=== PATIENT | male | born 1950 | race Caucasian/White ===

== ENCOUNTER 2022-07-25 22:31 | Emergency (ER) | payer OTHER ==
--- OUTSIDE RECORDS SUMMARY | 2022-07-25 22:35 | XMS REPORT | Continuity of Care Document ---
:[address] [facility] t Address [address] [place] [address] Care Team Providers Name Role Phone Mike Gputa MD Primary Care Physician Mike Gupta MD Attending Clinician Doctor Unassigned, [place] Attending Clinician Unavailable Payers Payer Name Policy Type Policy Number Effective Date Expiration Date S ource Problems Condition Condition Condition Status Onset Resolution Last Treating Co mments Source Name Details Category Date Date Treatment Clinician Date Altered Altered Disease Active Univers mental mental 7-31 ity of status, status, 00:00: [place] unspecifie unspecifie 00 Me dical d altered d altered Bran ch mental mental status status type type Encounter Encounter Disease Active 2019-11 Uni vers for for 2-03 ity of Medicare Medicare 00:00: [place] annual annual Medical wellness wellness Branch exam exam Insomnia, Insomnia, Disease Active Uni vers unspecifie unspecifie 8-13 it y of d type d type 00:00: [place] [facility] Anxiety Anxiety Disease Active Univers 8-13 ity of 00:00: [place] [facility] Chronic Chronic Disease Active 2014-11 Univers back pain back pain 0-16 ity of 00:00: [place] [facility] Peripheral Peripheral Disease Active 2014-11 U nivers vascular vascular 0-16 ity of [place] status 00 Medica l with with Branch implants implants and grafts and grafts Hyperlipem Hyperlipem Disease Active 2014-11 U nivers ia ia 0-16 ity of 00:00: [place] 00 [facility] Branch Allergies, Adverse Reactions, Alerts This patient has no known allergies or adverse reactions. Social History Social Habit Start Date Stop Date Quantity Comments Source Exposure to 2022-07-03 2022-07-13 Not sure [facility]-CoV-2 00:00:00 09:22:00 [facility] (event) [facility] Alcohol intake 2022-07-13 2022-07-13 Current University 00:00:00 00:00:00 non-drinker of [facility] alcohol (finding) [facility] Tobacco use and 2022-07-06 2022-07-06 Smokeless tobacco Un iversity of exposure 00:00:00 00:00:[address] [facility] History of 2008-09-25 Cigarette Smoker Universi ty of tobacco use 00:00:00 [facility] Sex Ass[birth year] Universit y of 00:00:00 00:00:00 [facility] Smoking Status Start Date Stop Date Source Ex-smoker 2022-07-06 00:00:00 2022-07-06 00:00:[address] [facility] Medications Ordered Filled Start Stop Current Ordering Indication Dosage Frequency Signature Comments Components Source Medication Medication Date Date Medication? Clinician (SIG) Name Name zolpidem 10 Yes [id number] 10mg Take 1 Univers mg tablet 9-19 tablet by ity o f 00:00: mouth at [place] 00 bedtime as Medical needed for Branch Insomnia. HYDROcodone Yes [id number] 1{tbl} Take 1 Un kerline -acetaminop 9-15 tablet by ity of hen 10-325 00:00: mouth [place] mg tablet 00 every 4 Medical (four) Branch hours as needed for Pain (scale 4-6). Indication s: chronic pain carisoprodo Yes [id number] TAKE 1 Univers L 350 mg 9-15 TABLET BY ity of tablet 00:00: MOUTH FOUR [place] 00 TIMES A Medical DAY Branch HYDROcodone Yes [id number] 1{tbl} Take 1 Un kerline -acetaminop 9-15 tablet by ity of hen 10-325 00:00: mouth [place] mg tablet 00 every 4 Medical (four) Branch hours as needed for Pain (scale 4-6). Indication s: chronic pain carisoprodo Yes [id number] TAKE 1 Univers L 350 mg 9-15 TABLET BY ity of tablet 00:00: MOUTH FOUR [place] 00 TIMES A Medical DAY Branch mupirocin 2 2021-0 Yes [id number] Apply to Univers % ointment 8-31 area(s) 3 ity of 00:00: (three) [place] 00 times Medical daily. Branch mupirocin 2 2021-0 Yes [id number] Apply to Univers % ointment 8-31 area(s) 3 ity of 00:00: (three) [place] 00 times Medical daily. Branch mupirocin 2 2021-0 Yes [id number] Apply to Univers % ointment 8-31 area(s) 3 ity of 00:00: (three) [place] 00 times Medical daily. Branch mupirocin 2 0 Yes [id number] Apply to Univers % ointment 8-31 area(s) 3 ity of 00:00: (three) [place] 00 times Medical daily. Branch zolpidem 10 2021- No 10mg Take 10 mg Univers mg tablet 06-2319 by mouth ity o f 00:00: 00:00 at bedtime [place] 00 :00 as needed. Medical Branch carisoprodo Yes [id number] TAKE 1 Univers L 350 mg 8-17 TABLET BY ity of tablet 00:00: MOUTH FOUR [place] 00 TIMES A Medical DAY Branch HYDROcodone 0 Yes [id number] 1{tbl} Take 1 Un kerline -acetaminop 8-17 tablet by ity of hen 10-325 00:00: mouth [place] mg tablet 00 every 4 Medical (four) Branch hours as needed for Pain (scale 4-6). Indication s: chronic pain carisoprodo 0 Yes [id number] TAKE 1 Univers L 350 mg 8-17 TABLET BY ity of tablet 00:00: MOUTH FOUR [place] 00 TIMES A Medical DAY Branch HYDROcodone 2021-0 Yes [id number] 1{tbl} Take 1 Un kerline -acetaminop 8-17 tablet by ity of hen 10-325 00:00: mouth [place] mg tablet 00 every 4 Medical (four) Branch hours as needed for Pain (scale 4-6). Indication s: chronic pain carisoprodo 2021- No [id number] TAKE 1 Univers L 350 mg -15 TABLET BY ity o f tablet 00:00: 00:00 [place]TH FOUR [place] :[place] TIMES A Medical DAY Branch HYDROcodone 2021- No [id number] 1{tbl} Take 1 U nivers -acetaminop 8-17 07-21 tablet by it y of hen 10-325 00:00: 00:00 mouth [place] mg tablet 00 :00 every 4 Medical (four) Branch hours as needed for Pain (scale 4-6). Indication s: chronic pain lisinopriL Yes [id number] 5mg Take 1 Univers 5 mg tablet 8-01 tablet by ity of 00:00: mouth in [place] 00 the Medical morning. Branch lisinopriL 0 Yes [id number] 5mg Take 1 Univers 5 mg tablet 8-01 tablet by ity of 00:00: mouth in [place] 00 the Medical morning. Branch lisinopriL 0 Yes [id number] 5mg Take 1 Univers 5 mg tablet 8-01 tablet by ity of 00:00: mouth in [place] 00 the Medical morning. Branch lisinopriL 0 Yes [id number] 5mg Take 1 Univers 5 mg tablet 8-01 tablet by ity of 00:00: mouth in [place] 00 the Medical morning. Branch LOVASTATIN 2021-0 Yes [id number] TAKE 1 U nivers 20 mg 5-26 TABLET BY ity of tablet 00:00: MOUTH [place] 00 EVERY DAY Medical Branch LOVASTATIN 2021-0 Yes [id number] TAKE 1 U nivers 20 mg 5-26 TABLET BY ity of tablet 00:00: MOUTH [place] 00 EVERY DAY Medical Branch LOVASTATIN 2021-0 Yes [id number] TAKE 1 U nivers 20 mg 5-26 TABLET BY ity of tablet 00:00: MOUTH [place] 00 EVERY DAY Medical Branch LOVASTATIN 2021-0 Yes [id number] TAKE 1 U nivers 20 mg 5-26 TABLET BY ity of tablet 00:00: MOUTH [place] 00 EVERY DAY Medical Branch CLOPIDOGREL 2021-0 Yes [id number] TAKE 1 Univers 75 mg 4-28 TABLET BY ity of tablet 00:00: MOUTH [place] 00 EVERY DAY Medical Branch CLOPIDOGREL 2-0 Yes [id number] TAKE 1 Univers 75 mg 4-28 TABLET BY ity of tablet 00:00: MOUTH [place] 00 EVERY DAY Medical Branch CLOPIDOGREL 2-0 Yes [id number] TAKE 1 Univers 75 mg 4-28 TABLET BY ity of tablet 00:00: MOUTH [place] 00 EVERY DAY Medical Branch CLOPIDOGREL 2-0 Yes [id number] TAKE 1 Univers 75 mg 4-28 TABLET BY ity of tablet 00:00: MOUTH [place] 00 EVERY DAY Medical Branch citalopram 2021-0 Yes [id number] 20mg Take 1 U nivers 20 mg 1-11 tablet by ity of tablet 00:00: mouth [place] 00 daily. Medical Branch citalopram 2021-0 Yes [id number] 20mg Take 1 U nivers 20 mg 1-11 tablet by ity of tablet 00:00: mouth [place] 00 daily. Medical Branch citalopram 2021-0 Yes [id number] 20mg Take 1 U nivers 20 mg 1-11 tablet by ity of tablet 00:00: mouth [place] 00 daily. Medical Branch citalopram 2021-0 Yes [id number] 20mg Take 1 U nivers 20 mg 1-11 tablet by ity of tablet 00:00: mouth [place] 00 daily. Medical Branch Immunizations Ordered Filled Immunization Date Status Comments [facility] Immunization Name Name SARS-COV-2 COVID-19 2021-11-03 Completed Unive rsity of MODERNA 0.25ML 00:00:00 [place] Medi jorge BOOSTER VACCINE Branch SARS-COV-2 COVID-19 2021-11-03 Completed Unive rsity of MODERNA 0.25ML 00:00:00 [place] Medi jorge BOOSTER VACCINE Branch SARS-COV-2 COVID-19 2021-11-03 Completed Unive rsity of MODERNA 0.25ML 00:00:00 [place] Medi jorge BOOSTER VACCINE Branch SARS-COV-2 COVID-19 2021-11-03 Completed Unive rsity of MODERNA 0.25ML 00:00:00 [place] Medi jorge BOOSTER VACCINE Branch Influenza Virus 2021-07-08 Completed Universit y of Vaccine 00:00:00 [facility] Influenza Virus 2021-07-08 Completed Universit y of Vaccine 00:00:00 [facility] Influenza Virus 2021-07-08 Completed Universit y of Vaccine 00:00:00 [facility] Influenza Virus 2021-07-08 Completed Universit y of Vaccine 00:00:00 [facility] SARS-COV-2 COVID-19 2021-01-06 Completed Unive rsity of MODERNA 12+ YRS 00:00:00 [facility] ical VACCINE Branch SARS-COV-2 COVID-19 2021-01-06 Completed Unive rsity of MODERNA 12+ YRS 00:00:00 [facility] ical VACCINE Branch SARS-COV-2 COVID-19 2021-01-06 Completed Unive rsity of MODERNA 12+ YRS 00:00:00 [facility] ical VACCINE Branch SARS-COV-2 COVID-19 2021-01-06 Completed Unive rsity of MODERNA 12+ YRS 00:00:00 [facility] ical VACCINE Branch SARS-COV-2 COVID-19 2020-12-09 Completed Unive rsity of MODERNA 12+ YRS 00:00:00 [facility] ical VACCINE Branch SARS-COV-2 COVID-19 2020-12-09 Completed Unive rsity of MODERNA 12+ YRS 00:00:00 [facility] ical VACCINE Branch SARS-COV-2 COVID-19 2020-12-09 Completed Unive rsity of MODERNA 12+ YRS 00:00:00 [facility] ical VACCINE Branch SARS-COV-2 COVID-19 2020-12-09 Completed Unive rsity of MODERNA 12+ YRS 00:00:00 [facility] VACCINE Branch Influenza High Dose 2020-06-29 Completed Unive rsity of [place] 00:00:00 [facility] Influenza High Dose 2020-06-29 Completed Unive rsity of [place] 00:00:00 [facility] Influenza High Dose 2020-06-29 Completed Unive rsity of [place] 00:00:00 [facility] Influenza High Dose 2020-06-29 Completed Unive rsity of [place] 00:00:00 [facility] Influenza High Dose 2018-08-27 Completed Unive rsity of 00:00:00 [facility] Influenza High Dose 2018-08-27 Completed Unive rsity of 00:00:00 [facility] Influenza High Dose 2018-08-27 Completed Unive rsity of 00:00:00 [facility] Influenza High Dose 2018-08-27 Completed Unive rsity of 00:00:00 [facility] Vital Signs Vital Name Observation Time Observation Value Comments Source Systolic blood 2022-07-13 14:29:00 145 mm[Hg] Shad sity [facility] pressure [facility] Diastolic blood 2022-07-13 14:29:00 81 mm[Hg] Edgar mcclure [facility] Heart rate 2022-07-13 14:25:00 73 /min [facility] Body height 2022-07-13 14:25:00 182.9 cm [facility] Body weight 2022-07-13 14:25:00 93.396 kg [facility] BMI 2022-07-13 14:25:00 27.93 kg/m2 [facility] Oxygen saturation 2022-07-13 14:25:00 99 /min [facility] in Arterial blood [facility] anch by Pulse oximetry Procedures Procedure Date / Time Performed Performing Clinician [facility] e PATIENT QUESTIONNAIRE 2022-07-07 05:01:00 Doctor Unassigned, No [facility] Plan of Care Planned Activity Planned Date Details Comments Source Encounters Start End Encounter Admission Attending Care Care Encounter Source Date/Time Date/Time Type Type Clinicians Facility Department ID 2022-07-21 2022-07-21 Telephone [facility] [id number] [facility] 00:00:00 00:00:00 [facility] [id number] it y of [place] [id number] [place] as DANE?BLEA [id number] [address] MEDICAL OFFICE [facility] 2022-07-20 2022-07-20 Refill [facility] [id number] Univers 00:00:00 00:00:00 [facility] [id number] it y of [place] [id number] [place] DANE?BLEA [id number] [address] MEDICAL OFFICE BUILDING 2022-07-13 2022-07-13 [facility] [id number] Univers 09:45:00 10:00:00 Visit [facility] [id number] it y of [place] [id number] [place] as DANE?BLEA [id number] Ny dical ALIS [address] [facility] MEDICAL OFFICE BUILDING 2022-07-07 2022-07-07 Orders Doctor ANDRZEJ [id number] Univers 00:00:00 00:00:00 Only Unassigned, MAYDA [id number] ity of [place] [facility] [id number] [place] as [id number] [address] 2021-05-11 2021-05-11 Office DORA Gupta [id number] 07:33:34 07:48:34 Visit [facility] [id number] [place] [id number] [place] [id number] [place] [address] [address] One Results This patient has no known results.
[2022-07-25] MEDS ORDERED: Phenylephrine HCl 10 MG/ML 1 ML VIAL ONE (23:54)
--- NOTE | 2022-07-26 00:04 | EDPHYS ---
Physician Documentation [facility] Name: Gary English Age: 72 yrs Sex: Male : 1950 Arrival Date: 07/25/2022 Time: 22:37 Bed 23 Private MD: ED Physician Thanh Mary HPI: 07/26 00:03 This 72 yrs old Male presents to ER via Ambulatory with complaints of ERECTION FOR MORE ms3 THAN 4 HOURS POST INJECTION. 00:03 72-year-old male with past medical history of hypertensive disorder, depressive ms3 disorder, hyperlipidemia, erectile dysfunction presents for priapism x3 hours. Patient states he is having mild to moderate penile pain. Patient states he injected his penis with alprostadil 50 mcg at 7:30 PM. Patient denies alleviating or inciting factors. Patient denies nausea, vomiting, fevers, chills, shortness of breath.. Historical: - Allergies: 07/25 22:51 No Known Allergies; as6 - PMHx: 22:51 Hypertensive disorder; Depressive disorder; Hypercholesterolemia; as6 - PSHx: 22:51 open heart; as6 - Immunization history:: Client reports receiving the 2nd dose of the Covid vaccine. - Social history:: Smoking status: Patient denies any tobacco usage or history of. ROS: 07/26 00:03 Constitutional: Negative for fever, and chills. Neck: Negative for injury, pain, and ms3 swelling, Cardiovascular: Negative for chest pain, and palpitations. Respiratory: Negative for shortness of breath, cough, wheezing, and pleuritic chest pain, Abdomen/GI: Negative for abdominal pain, nausea, vomiting, diarrhea, and constipation, MS/Extremity: Negative for injury and deformity, Neuro: Negative for headache, weakness, numbness, tingling. : Positive for priapism. All other systems are negative. Exam: 00:03 Constitutional: This is a well developed, well nourished patient who is awake, alert, ms3 and in no acute distress. Head/Face: Normocephalic, atraumatic. Neck: Trachea midline, no cervical lymphadenopathy. Supple, full range of motion without nuchal rigidity, or vertebral point tenderness. No Meningismus. Chest/axilla: Normal chest wall appearance and motion. Nontender with no deformity. Cardiovascular: Regular rate and rhythm with a normal S1 and S2. No gallops, murmurs, or rubs. Normal PMI, no JVD. No pulse deficits. Respiratory: Lungs have equal breath sounds bilaterally, clear to auscultation and percussion. No rales, rhonchi or wheezes noted. No increased work of breathing, no retractions or nasal flaring. Abdomen/GI: Soft, non-tender, with normal bowel sounds. No distension or tympany. No guarding or rebound. No evidence of tenderness throughout. 00:03 : Male external genitalia: Erection present. Vital Signs: 07/25 22:45 BP 113 / 74; Pulse 81; Resp 18 S; Temp 98.6(O); Pulse Ox 97% on R/A; Weight 90.72 kg as6 (R); Height 6 ft. 0 in. (182.88 cm) (R); Pain 4/10; 07/26 00:10 BP 165 / 89; Pulse 71; Resp 18 S; Pulse Ox 99% on R/A; bb 07/25 22:45 Body Mass Index 27.12 (90.72 kg, 182.88 cm) as6 MDM: 07/25 22:52 Patient medically screened. ms3 07/26 00:03 Data reviewed: vital signs, nurses notes, and as a result, I will discharge patient. ms3 Counseling: I had a detailed discussion with the patient and/or guardian regarding: the historical points, exam findings, and any diagnostic results supporting the discharge/admit diagnosis, the need for outpatient follow up, to return to the emergency department if symptoms worsen or persist or if there are any questions or concerns that arise at home. ED course: Patient's pain is injected with 250 mcg of phenylephrine with detumescence of his penis. Patient states pain improved. Patient asking to be discharged at this time. Discussed return precautions with patient to include worsening symptoms, or any other concerns. Patient understands agrees plan. All questions were answered.. Administered Medications: 07/25 23:57 Drug: Phenylephrine 1 mg {Note: administered in penis by Dr Mary .} Route: IV; Rate: bb calculated rate; Site: Other; 07/26 00:10 Follow up: Response: Marked relief of symptoms bb Disposition Summary: 07/26/22 00:03 Discharge Ordered Location: Home ms3 Condition: Stable ms3 Diagnosis - Priapism, drug-induced ms3 Followup: ms3 - With: Private Physician - When: 2 - 3 days - Reason: Recheck today's complaints Discharge Instructions: - Discharge Summary Sheet ms3 - Priapism ms3 Forms: - Medication Reconciliation Form ms3 - Thank You Letter ms3 - Antibiotic Education ms3 - Prescription Opioid Use ms3 Signatures: Eduarda Acosta RN RN Thanh Aj DO DO ms3 David Kumar RN RN as6
--- NOTE | 2022-07-26 00:04 | ER ---
Nurse's Notes [facility] Name: Gary English Age: 72 yrs Sex: Male : 1950 Arrival Date: 07/25/2022 Time: 22:37 Bed 23 Private MD: Diagnosis: Priapism, drug-induced Presentation: 07/25 22:45 Chief complaint: Patient states: "I went to the doctor and started injection therapy as6 today and they gave me some pills. It was my first time taking them and they said if it didn't go down in 3 hours to come here". Coronavirus screen: At this time, the client does not indicate any symptoms associated with coronavirus-19. Ebola Screen: No symptoms or risks identified at this time. Initial Sepsis Screen: Does the patient meet any 2 criteria? No. Patient's initial sepsis screen is negative. Does the patient have a suspected source of infection? No. Patient's initial sepsis screen is negative. Risk Assessment: Do you want to hurt yourself or someone else? Patient reports no desire to harm self or others. Onset of symptoms was July 25, 2022 at 19:30. 22:45 Method Of Arrival: Ambulatory as6 22:45 Acuity: DILIA 3 as6 Historical: - Allergies: 22:51 No Known Allergies; as6 - PMHx: 22:51 Hypertensive disorder; Depressive disorder; Hypercholesterolemia; as6 - PSHx: 22:51 open heart; as6 - Immunization history:: Client reports receiving the 2nd dose of the Covid vaccine. - Social history:: Smoking status: Patient denies any tobacco usage or history of. Screenin:22 Abuse screen: Denies threats or abuse. Denies injuries from another. Nutritional hb screening: No deficits noted. Tuberculosis screening: No symptoms or risk factors identified. Fall Risk None identified. Assessment: 23:22 General: Appears in no apparent distress. Behavior is calm, cooperative. Pain: Pain hb currently is 4 out of 10 on a pain scale. Neuro: Level of Consciousness is awake, alert, obeys commands, Oriented to person, place, time, situation. Cardiovascular: Patient's skin is warm and dry. Respiratory: Respiratory effort is even, unlabored, Respiratory pattern is regular, symmetrical. GI: No signs and/or symptoms were reported involving the gastrointestinal system. : erection. EENT: No signs and/or symptoms were reported regarding the EENT system. Derm: Skin is pink, warm \\T\\ dry. Musculoskeletal: No signs and/or symptoms reported regarding the musculoskeletal system. 23:22 General: Appears in no apparent distress. uncomfortable. Pain: Complains of pain in bb penis. Neuro: Level of Consciousness is awake, alert, obeys commands, Oriented to person, place, time, situation. Cardiovascular: Capillary refill < 3 seconds Patient's skin is warm and dry. Respiratory: Airway is patent Respiratory effort is even, unlabored, Respiratory pattern is regular. GI: No signs and/or symptoms were reported involving the gastrointestinal system. : Reports he has an erection which won't go down. Derm: Skin is pink, warm \\T\\ dry. Musculoskeletal: Circulation, motion, and sensation intact. 07/26 00:09 Reassessment: Patient is alert, oriented x 3, equal unlabored respirations, skin bb warm/dry/pink. pt verbalized understanding of and agrees to plan of care discharge instructions given pt ambulated with steady gait to exit. Vital Signs: 07/25 22:45 BP 113 / 74; Pulse 81; Resp 18 S; Temp 98.6(O); Pulse Ox 97% on R/A; Weight 90.72 kg as6 (R); Height 6 ft. 0 in. (182.88 cm) (R); Pain 4/10; 07/26 00:10 BP 165 / 89; Pulse 71; Resp 18 S; Pulse Ox 99% on R/A; bb 07/25 22:45 Body Mass Index 27.12 (90.72 kg, 182.88 cm) as6 ED Course: 07/25 22:37 Patient arrived in ED. dt4 22:41 Thanh Mary DO is Attending Physician. ms3 22:51 Triage completed. as6 22:52 Arm band placed on. as6 23:22 Dari Benito, RN is Primary Nurse. hb 23:22 Patient has correct armband on for positive identification. hb 07/26 00:10 No provider procedures requiring assistance completed. Patient did not have IV access bb during this emergency room visit. Administered Medications: 07/25 23:57 Drug: Phenylephrine 1 mg {Note: administered in penis by Dr Mary .} Route: IV; Rate: bb calculated rate; Site: Other; 07/26 00:10 Follow up: Response: Marked relief of symptoms bb Medication: 07/25 23:22 VIS not applicable for this client. Outcome: 07/26 00:03 Discharge ordered by . ms3 00:11 Discharged to home ambulatory. reagan 00:11 Condition: stable 00:11 Discharge instructions given to patient, Instructed on discharge instructions, follow up and referral plans. Demonstrated understanding of instructions, follow-up care. 00:11 Patient left the ED. bb Signatures: Eduarda Acosta, RN RN bb Dari Benito, RN RN Thanh Mary DO DO ms3 David Kumar, RN RN as6 [place] dt4
[2022-07-27 09:04] VITALS: TEMP 98.6
[2022-07-27 09:14] VITALS: BP 165/89; O2SAT 99
== END 2022-07-26 00:11 | disposition home or self-care (01) ==
LOC: ER 22:31
DX: N48.33 Priapism, drug-induced (principal)
CPT/HCPCS: 96374; 99283; J2370

== ENCOUNTER → 2023-10-31 | Emergency (ER) | payer OTHER ==
[~2023-10-31] MED LIST: FLUORESCEIN SODIUM 1 MG/WRAP ONE; TETRACAINE HCL 0.5% 4ML OPTH ONE
--- NOTE | 2023-10-31 13:53 | ER ---
Nurse's Notes [facility] Name: Gary English Age: 73 yrs Sex: Male : 1950 Arrival Date: 10/31/2023 Time: 13:17 Bed 12 Private MD: Diagnosis: Injury of conjunctiva and corneal abrasion without foreign body, left eye Presentation: 10/31 13:41 Chief complaint: Patient states: was playing golf, went to retrieve a ball from the brush and felt something poke hi left eye, is unsure if there's something stuck in it or just scratched , happened 2-3 hours ago. Coronavirus screen: At this time, the client does not indicate any symptoms associated with coronavirus-19. Ebola Screen: Patient negative for fever greater than or equal to 101.5 degrees Fahrenheit, and additional compatible Ebola Virus Disease symptoms Patient denies exposure to infectious person. Patient denies travel to an Ebola-affected area in the 21 days before illness onset. No symptoms or risks identified at this time. Initial Sepsis Screen: Does the patient meet any 2 criteria? No. Patient's initial sepsis screen is negative. Does the patient have a suspected source of infection? No. Patient's initial sepsis screen is negative. Risk Assessment: Do you want to hurt yourself or someone else? Patient reports no desire to harm self or others. Onset of symptoms was October 31, 2023. 13:41 Method Of Arrival: Ambulatory iw 13:41 Acuity: DILIA 4 iw Historical: - Allergies: 13:42 No Known Allergies; iw - PMHx: 13:42 depressive disorder; Hypercholesterolemia; Hypertensive disorder; iw - PSHx: 13:42 open heart; iw - Immunization history:: Adult Immunizations unknown. - Social history:: Smoking status: Patient denies any tobacco usage or history of. - Family history:: not pertinent. - Hospitalizations: : No recent hospitalization is reported. Screenin:49 [facility] ED Fall Risk Assessment (Adult) History of falling in the last 3 months, ph including since admission No falls in past 3 months (0 pts) Confusion or Disorientation No (0 pts) Intoxicated or Sedated No (0 pts) Impaired Gait No (0 pts) Mobility Assist Device Used Yes (1 pt) Altered Elimination No (0 pt) Score/Fall Risk Level 0 - 2 = Low Risk Oriented to surroundings, Maintained a safe environment, Assessed \T\ reinforced patient's understanding of fall precautions, Provided non-skid footwear. Abuse screen: Denies threats or abuse. Denies injuries from another. Nutritional screening: No deficits noted. Tuberculosis screening: No symptoms or risk factors identified. Assessment: 13:50 General: Appears in no apparent distress. Behavior is calm, cooperative, appropriate ph for age. Pain: Complains of pain in left eye. Neuro: Level of Consciousness is awake, alert, obeys commands, Oriented to person, place, time, situation. EENT: Sclera/Cornea are reddened in left eye. Derm: Skin is pink, warm \T\ dry. Vital Signs: 13:41 BP 159 / 81; Pulse 60; Resp 16; Temp 97.6; Pulse Ox 97% on R/A; iw ED Course: 13:21 Patient arrived in ED. mg5 13:28 Kalin Enriquez MD is Attending Physician. rn 13:42 Triage completed. iw 13:48 Khadijah Cowart RN is Primary Nurse. ph 13:50 Arm band placed on Patient placed in an exam room. ph 13:50 Patient has correct armband on for positive identification. Bed in low position. Call ph light in reach. Side rails up X 1. 13:51 No provider procedures requiring assistance completed. Patient did not have IV access ph during this emergency room visit. 13:52 Toby Greenwood MD is Referral Physician. rn Administered Medications: 13:49 Drug: Fluorescein Ophthalmic Strip 1 strip Ophthalmic once Route: Ophthalmic; Site: ph left eye; 14:03 Follow up: Response: No adverse reaction ph 13:49 Drug: Tetracaine Ophthalmic Drops 0.5 % 1 drops Ophthalmic once Route: Ophthalmic; ph Site: left eye; 14:03 Follow up: Response: No adverse reaction ph Medication: 13:50 VIS not applicable for this client. ph Outcome: 13:52 Discharge ordered by . rn 14:03 Discharged to home ambulatory, ph 14:03 Condition: good 14:03 Discharge instructions given to patient, Instructed on discharge instructions, follow up and referral plans. medication usage, Demonstrated understanding of instructions, follow-up care, medications, Prescriptions given X 1, 14:03 Patient left the ED. ph Signatures: Lina Gonzalez RN RN Kalin Enriquez MD MD rn Hall Khadijah, RN RN ph rBeanne Pillai mg5
--- NOTE | 2023-10-31 13:53 | EDPHYS ---
Physician Documentation [facility] Name: Gary English Age: 73 yrs Sex: Male : 1950 Arrival Date: 10/31/2023 Time: 13:17 Bed 12 Private MD: ED Physician Kalin Enriquez HPI: 10/31 13:48 This 73 yrs old Male presents to ER via Ambulatory with complaints of Foreign Body In rn Eye. 13:48 The patient is experiencing foreign body sensation, tearing, The patient sustained an rn abrasion, to the left eye, caused by Branch. Onset: The symptoms/episode began/occurred today. Aggravated by nothing. Alleviated by nothing. Severity of symptoms: At their worst the symptoms were moderate in the emergency department the symptoms are unchanged. The patient has not experienced similar symptoms in the past. Patient reports playing golf, went into some brush, bent down and thinks a branch scraped his left eye. Finished playing golf, reports foreign body sensation left eye and came in to see if anything is in his eye. No loss of vision.. Historical: - Allergies: 13:42 No Known Allergies; iw - PMHx: 13:42 depressive disorder; Hypercholesterolemia; Hypertensive disorder; iw - PSHx: 13:42 open heart; iw - Immunization history:: Adult Immunizations unknown. - Social history:: Smoking status: Patient denies any tobacco usage or history of. - Family history:: not pertinent. - Hospitalizations: : No recent hospitalization is reported. ROS: 13:48 Constitutional: Negative for fever, chills, and weight loss, Eyes: Positive for injury rn and tearfulness of the left eye Exam: 13:48 Constitutional: This is a well developed, well nourished patient who is awake, alert, rn and in no acute distress. Head/Face: Normocephalic, atraumatic. Eyes: Pupils equal round and reactive to light, extra-ocular motions intact. Left corneal abrasion noted with fluorescein uptake. Negative Gera sign. Pupil on left side is equally round, not asymmetric. No foreign body noted even with lids everted. Vital Signs: 13:41 BP 159 / 81; Pulse 60; Resp 16; Temp 97.6; Pulse Ox 97% on R/A; iw MDM: 13:28 Patient medically screened. rn 13:48 Differential diagnosis: Corneal abrasion of Foreign body in. Differential diagnosis: rn Orbital rupture. Data reviewed: vital signs, nurses notes, and as a result, I will discharge patient. Counseling: I had a detailed discussion with the patient and/or guardian regarding the historical points, exam findings, and any diagnostic results supporting the discharge/admit diagnosis, the need for outpatient follow up, to return to the emergency department if symptoms worsen or persist or if there are any questions or concerns that arise at home. Response to treatment: the patient's symptoms have markedly improved after treatment, and as a result, I will discharge patient. Special discussion: I discussed with the patient/guardian in detail that at this point there is no indication for admission to the hospital. It is understood, however, that if the symptoms persist or worsen the patient needs to return immediately for re-evaluation. Based on the history and exam findings, there is no indication for further emergent testing or inpatient evaluation. I discussed with the patient/guardian the need to see the opthamologist for further evaluation of the symptoms. ED course: Markedly improved after tetracaine drops. Vision tested again and normal vision after drops.. Administered Medications: 13:49 Drug: Fluorescein Ophthalmic Strip 1 strip Ophthalmic once Route: Ophthalmic; Site: ph left eye; 14:03 Follow up: Response: No adverse reaction ph 13:49 Drug: Tetracaine Ophthalmic Drops 0.5 % 1 drops Ophthalmic once Route: Ophthalmic; ph Site: left eye; 14:03 Follow up: Response: No adverse reaction ph Disposition Summary: 10/31/23 13:52 Discharge Ordered Notes: Location: Home rn Problem: new rn Symptoms: have improved rn Condition: Stable rn Diagnosis - Injury of conjunctiva and corneal abrasion without foreign body, left eye rn Followup: rn - With: Toby Greenwood MD - When: As needed - Reason: Recheck today's complaints, Re-evaluation by your physician Discharge Instructions: - Discharge Summary Sheet rn - Corneal Abrasion rn Forms: - Medication Reconciliation Form rn - Thank You Letter rn - Antibiotic regulatory affairs internship - Prescription Opioid Use rn - Patient Portal Instructions rn - Leadership Thank You Letter rn Prescriptions: - Vigamox 0.5 % Ophthalmic Drops - instill 1 drop OPHTHALMIC route every 8 hours for 7 days; 5 milliliter; rn Refills: 0, Product Selection Permitted Signatures: Lina Gonzalez RN Kalin Dumont MD MD rn Hall, Patricia, RN RN ph
[2023-10-31 15:24] VITALS: BP 159/81; TEMP 97.6; O2SAT 97
== END ==
LOC: ER 13:17
DX: S05.02XA Injury of conjunctiva and corneal abrasion without foreign body, left eye, initial encounter (principal)
CPT/HCPCS: 99283

== ENCOUNTER → 2024-01-22 | Emergency (ER) | payer OTHER ==
--- NOTE | 2024-01-22 22:20 | ER ---
Nurse's Notes [facility] Name: Gary English Age: 73 yrs Sex: Male : 1950 Arrival Date: 01/22/2024 Time: 21:51 Bed IW2 Private MD: Diagnosis: Presentation: 01/21 22:01 Chief complaint: Patient states: HIGH BP STARTED TODAY. Coronavirus screen: At this [facility] time, the client does not indicate any symptoms associated with coronavirus-19. Ebola Screen: No symptoms or risks identified at this time. Initial Sepsis Screen: Does the patient meet any 2 criteria? No. Patient's initial sepsis screen is negative. Does the patient have a suspected source of infection? No. Patient's initial sepsis screen is negative. Risk Assessment: Do you want to hurt yourself or someone else? Patient reports no desire to harm self or others. Note PT STATES HE JUST WANTS TO LEAVE. 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 BP IS GOING DOWN. JUST WANTED HIS BP CHECKED. PT ENCOURAGED TO SEE MD. STATES HE JUST WANTS TO LEAVE. PT GIVEN EDUCATION ABOUT TAKING BP MEDS DIRECTED BECAUSE HE WAS INSTRUCTED BY HIS MD TO TAKE IN THE MORNING BUT STATES HE FORGETS. INSTRUCTED TO WAIT ABOUT 45 MIN AFTER TAKING MEDS BEFORE CHECKING BP. STATES THEY WILL TAKE MEDS DIRECTED. 22:01 Method Of Arrival: Ambulatory [facility] 22:01 Acuity: DILIA 3 jj7 Triage Assessment: 22:01 General: Appears in no apparent distress. comfortable, Behavior is calm, cooperative, jj7 appropriate for age. Pain: Denies pain. Cardiovascular: No deficits noted. Historical: - Allergies: 22:12 No Known Allergies; jj7 - PMHx: 22:12 depressive disorder; Hypertensive disorder; Hypercholesterolemia; jj7 - PSHx: 22:12 open heart; jj7 - Immunization history:: Adult Immunizations up to date. Vital Signs: 22:01 BP 154 / 86; Pulse 75; Resp 17; Temp 97.4; Pulse Ox 100% ; Weight 92.53 kg; Height 6 j7 ft. 0 in. ; Pain 0/10; 22:01 Body Mass Index 27.67 (92.53 kg, 182.88 cm) 7 22:01 Pain Scale: Adult jj7 ED Course: 21:54 Patient arrived in ED. im 21:55 Abilio Moncada MD is Attending Physician. holly 22:01 Arm band placed on left wrist. marvin 22:12 Triage completed. jj7 Administered Medications: 22:17 CANCELLED (Patient Eloped): [id number] mg PO once pf1 22:17 CANCELLED (Patient Eloped): [id number] mg PO once pf1 Outcome: 22:20 Patient left the ED. pf1 Signatures: Abilio Moncada MD MD cha Johnson, Juwairiyah RN RN jj7 Priti Mora RN RN pf1 Vonda Michael im
[2024-01-22 22:40] VITALS: BP 154/86; TEMP 97.4; O2SAT 100
== END | disposition left against medical advice (07) ==
LOC: ER 21:51
DX: I10 Essential (primary) hypertension (principal)
CPT/HCPCS: 99281

== ENCOUNTER 2024-03-04 18:48 | Emergency (ER) | payer OTHER ==
[2024-03-04 19:10] LABS: Absolute Basophils 0.1 K/uL (0-0.5); Absolute Eosinophils 0.6 K/uL (0-0.5); Absolute Lymphocytes (CBC) 2.5 K/uL (0.7-4.9); Absolute Monocytes 1.1 K/uL (0.1-1.3); Absolute Neutrophil 4.9 K/uL (1.8-8.0); Basophils % 0.6 % (0-1.3); Eosinophils % 6.9 % (0-4.4); Hematocrit 38.2 % (39.6-49.0); Hemoglobin 12.9 g/dL (13.6-17.9); MCH 29.1 pg (27.0-35.0); MCHC 33.6 g/dL (32.0-36.0); MCV 86.4 fL (80-100); Monocytes % 12.3 % (3.3-12.3); Neutrophils % 53.2 % (41.7-73.7); Platelets 278 thou/uL (152-406); RBC Red Blood Cell Count 4.42 M/uL (4.33-5.43); Red Cell Distribution Width 14.1 % (12.1-15.2)
[2024-03-04 19:11] LABS: PT Prothrombin Time 12.6 SECONDS (9.5-12.5); Protime INR 1.15
--- NOTE | 2024-03-04 19:23 | EDPHYS ---
Physician Documentation [facility] Name: Gary English Age: 73 yrs Sex: Male : 1950 Arrival Date: 03/04/2024 Time: 18:48 Bed 5 Private MD: ED Physician Abilio Moncada HPI: 03/04 19:12 This 73 yrs old Male presents to ER via Ambulatory with complaints of High holly Blood Pressure, Chest Pain. 19:12 The patient has elevated blood pressure and discovered this at home. Onset: The holly symptoms/episode began/occurred yesterday. Modifying factors: The symptoms are aggravated by activity, The symptoms are alleviated by remaining still. Associated signs and symptoms: The patient has no apparent associated signs or symptoms. Severity of symptoms: At its worst the blood pressure was moderate, in the emergency department the blood pressure is improved, moderately. The patient has not experienced similar symptoms in the past. Historical: - Allergies: 18:53 No Known Allergies; as6 - PMHx: 18:53 depressive disorder; Hypercholesterolemia; Hypertensive disorder; as6 - PSHx: 18:53 open heart; as6 - Immunization history:: Adult Immunizations not up to date. - Infectious Disease History:: Denies. - Social history:: Smoking status: Patient/guardian denies using tobacco, but has a distant history of tobacco abuse. ROS: 19:13 Constitutional: Negative for fever, chills, and weight loss, Eyes: Negative for injury, holly pain, redness, and discharge, ENT: Negative for injury, pain, and discharge, Neck: Negative for injury, pain, and swelling, Respiratory: Negative for shortness of breath, cough, wheezing, and pleuritic chest pain, Abdomen/GI: Negative for abdominal pain, nausea, vomiting, diarrhea, and constipation, Back: Negative for injury and pain, : Negative for injury, bleeding, discharge, and swelling, MS/Extremity: Negative for injury and deformity, Skin: Negative for injury, rash, and discoloration, Neuro: Negative for headache, weakness, numbness, tingling, and seizure, Psych: Negative for depression, anxiety, suicide ideation, homicidal ideation, and hallucinations, Allergy/Immunology: Negative for hives, rash, and allergies, Endocrine: Negative for neck swelling, polydipsia, polyuria, polyphagia, and marked weight changes, Hematologic/Lymphatic: Negative for swollen nodes, abnormal bleeding, and unusual bruising, 19:13 Cardiovascular: Positive for chest pain, of the chest, Exam: 19:13 Constitutional: This is a well developed, well nourished patient who is awake, alert, holly and in no acute distress. Head/Face: Normocephalic, atraumatic. Eyes: Pupils equal round and reactive to light, extra-ocular motions intact. Lids and lashes normal. Conjunctiva and sclera are non-icteric and not injected. Cornea within normal limits. Periorbital areas with no swelling, redness, or edema. ENT: Nares patent. No nasal discharge, no septal abnormalities noted. Tympanic membranes are normal and external auditory canals are clear. Oropharynx with no redness, swelling, or masses, exudates, or evidence of obstruction, uvula midline. Mucous membranes moist. Neck: Trachea midline, no thyromegaly or masses palpated, and no cervical lymphadenopathy. Supple, full range of motion without nuchal rigidity, or vertebral point tenderness. No Meningismus. Chest/axilla: Normal chest wall appearance and motion. Nontender with no deformity. No lesions are appreciated. Respiratory: Lungs have equal breath sounds bilaterally, clear to auscultation and percussion. No rales, rhonchi or wheezes noted. No increased work of breathing, no retractions or nasal flaring. Abdomen/GI: Soft, non-tender, with normal bowel sounds. No distension or tympany. No guarding or rebound. No evidence of tenderness throughout. Back: No spinal tenderness. No costovertebral tenderness. Full range of motion. Male : Normal genitalia with no discharge or lesions. Skin: Warm, dry with normal turgor. Normal color with no rashes, no lesions, and no evidence of cellulitis. MS/ Extremity: Pulses equal, no cyanosis. Neurovascular intact. Full, normal range of motion. Neuro: Awake and alert, GCS 15, oriented to person, place, time, and situation. Cranial nerves II-XII grossly intact. Motor strength 5/5 in all extremities. Sensory grossly intact. Cerebellar exam normal. Normal gait. Psych: Awake, alert, with orientation to person, place and time. Behavior, mood, and affect are within normal limits. 19:13 Cardiovascular: Rate: normal, Rhythm: regular, Pulses: no pulse deficits are appreciated, Heart sounds: normal, Edema: is not appreciated, JVD: is not appreciated, Bilateral blood pressure: is equal, 19:13 ECG was reviewed by the Attending Physician. Vital Signs: 18:49 BP 213 / 96; Pulse 81; Resp 16; Temp 97.9; Pulse Ox 100% ; Weight 92.99 kg; Height 6 as6 ft. 0 in. ; Pain 0/10; 18:56 BP 155 / 74; Pulse 86; Resp 18 S; Pulse Ox 96% on R/A; kc6 19:00 BP 150 / 78; Pulse 80; Resp 15 S; Pulse Ox 98% on R/A; jw7 19:30 BP 130 / 74 LA; lg3 19:30 BP 128 / 80 RA; lg3 20:11 BP 160 / 83; Pulse 67; Resp 17 S; Pulse Ox 100% on R/A; jw7 20:15 BP 174 / 92; Pulse 84; Resp 14 S; Pulse Ox 99% on R/A; jw7 20:17 BP 167 / 76; Pulse 83; Resp 13 S; Pulse Ox 100% on R/A; jw7 20:45 BP 141 / 68; Pulse 75; Resp 17 S; Pulse Ox 100% on R/A; ha1 18:49 Body Mass Index 27.80 (92.99 kg, 182.88 cm) as6 18:49 Pain Scale: Adult as6 MDM: 18:51 Patient medically screened. holly 19:16 HEART Score: History: Moderately Suspicious (1), ECG: Significant ST-deviation (2), holly Age: > or = 65 years (2), Risk Factors: > or = 3 Risk factors for atherosclerotic disease (2), [Hypercholesterolemia] [Hypertension] [+ Family HX] Troponin: < or = 1 x Normal Limit (0), Total Score = 7. The patient was given aspirin in the Emergency Department. SHAYLA Risk Score: 1 - patient's age is greater or equal to 65 years, 1 - Three or more CAD risk factors, 1- Known CAD, 1 - ASA use in past 7 days, 1 - Recent [<24hrs] Severe Angina, TOTAL SCORE = 5. Data reviewed: vital signs, nurses notes, lab test result(s), EKG, radiologic studies, CT scan, plain films. Consideration of Admission/Observation Escalation of care including admission/observation considered. I considered the following discharge prescriptions or medication management in the emergency department Medications were administered in the Emergency Department. See MAR. Test considered but Not performed: Ultrasound no 2 d echo. Care significantly affected by the following chronic conditions: Hypertension, Chronic Kidney Disease. Counseling: I had a detailed discussion with the patient and/or guardian regarding the historical points, exam findings, and any diagnostic results supporting the discharge/admit diagnosis, the presence of at least one elevated blood pressure reading (>120/80) during this emergency department visit, lab results, radiology results, the need to transfer to another facility, for higher level of care, [facility] does not immediately have the required specialist. 03/04 18:54 Order name: Basic Metabolic Panel; Complete Time: 19:35 [facility] 03/04 18:54 Order name: CBC with Diff; Complete Time: 19:21 03/04 18:54 Order name: LFT's; Complete Time: 19:35 03/04 18:54 Order name: Magnesium; Complete Time: 19:35 03/04 18:54 Order name: NT PRO-BNP; Complete Time: 19:35 03/04 18:54 Order name: PT-INR; Complete Time: 19:21 03/04 18:54 Order name: Troponin HS; Complete Time: 19:35 03/04 18:54 Order name: Lipase; Complete Time: 19:35 03/04 18:54 Order name: XRAY Chest (1 view) [facility] 03/04 18:54 Order name: EKG; Complete Time: 18:54 03/04 18:54 Order name: Cardiac monitoring; Complete Time: 18:54 03/04 18:54 Order name: EKG - Nurse/Tech; Complete Time: 18:54 03/04 18:54 Order name: IV Saline Lock; Complete Time: 18:54 03/04 18:54 Order name: Labs collected and sent; Complete Time: 18:54 03/04 18:54 Order name: O2 Per Protocol; Complete Time: 18:55 03/04 18:54 Order name: O2 Sat Monitoring; Complete Time: 18:54 03/04 19:23 Order name: Bilateral blood pressure; Complete Time: 19:32 holly EC:13 Rate is 84 beats/min. Rhythm is regular. QRS [place] is Normal. NM interval is normal. QRS holly interval is normal. QT interval is normal. No Q waves. T waves are Normal. ST Segment is depressed in leads I, II, aVL, aVF, V2, V3, V4, V5, V6. Clinical impression: Abnormal EKG without significant change. Interpreted by me. Reviewed by me. Administered Medications: 19:50 Not Given (Duplicate Order): [id number] mg IV at per protocol once over 2 mins holly 19:50 Not Given (Duplicate Order): [id number] mg IV at per protocol once over 2 mins; repeat holly if systolic is greater than 160 sys, hr greater than 20:00 Drug: NS 0.9% IV 500 ml IV at bolus once Route: IV; Rate: bolus; Site: left wrist; jw7 20:45 Follow up: Response: No adverse reaction; IV Status: Completed infusion; IV Intake: jw7 500ml 20:00 Drug: NS 0.9% IV 1000 ml IV at 125 ml/hr continuous Route: IV; Rate: 125 ml/hr; Site: [facility] left wrist; 20:45 Follow up: Response: No adverse reaction; IV Status: Infusion continued upon transfer; jw7 IV Intake: 200ml 20:00 Drug: Famotidine IVP 20 mg IVP once; dilute with 10 mL 0.9% NaCl; give over 2 minutes jw7 Route: IVP; Site: right antecubital; 20:45 Follow up: Response: No adverse reaction jw7 20:00 Drug: Labetalol PO 100 mg PO once Route: PO; jw7 20:45 Follow up: Response: No adverse reaction; Marked relief of symptoms; Blood pressure is jw7 lowered 20:00 Drug: Clopidogrel PO 75 mg PO once Route: PO; jw7 20:50 Follow up: Response: No adverse reaction ha1 20:00 Drug: Aspirin PO Chewable Tablet 81 mg PO once Route: PO; jw7 20:50 Follow up: Response: No adverse reaction ha1 20:15 Drug: Heparin (ME-Bolus No thrombolytic) - HEParin IVP 60 units/kg IVP once; Max 5000 jw7 units {Co-Signature: lg3 (Galilea Haq RN).} Route: IVP; Site: right antecubital; 20:50 Follow up: Response: No adverse reaction; Marked relief of symptoms ha1 20:21 Drug: Heparin (ME Drip) 12 units/kg/hr - ([place] [address] units, D5W IV 500 ml) IV at jw7 calculated rate Per protocol; Max initial rate 1000 units/hr {Co-Signature: lg3 (Galilea Haq RN).} Route: IV; Rate: calculated rate; Site: right antecubital; 20:55 Follow up: Response: No adverse reaction; IV Status: Infusion continued ha1 20:34 Drug: Labetalol IV 10 mg IV at per protocol once Route: IV; Rate: per protocol; Site: jw7 left wrist; 20:45 Follow up: Response: No adverse reaction; IV Status: Completed infusion; IV Intake: 2ml jw7 20:55 Follow up: Response: No adverse reaction ha1 20:52 Not Given (Patient Refused): morphineor iv 2 mg IVP once over 4 mins jw7 20:52 Not Given (Patient Refused): morphineor iv 2 mg IVP once over 4 mins jw7 20:52 Not Given (Patient Refused): ondansetron 4 mg IVP once; over 2 minutes jw7 20:52 Not Given (PT Transferedd): [id number] mg IV at per protocol once; repeat if sys jw7 greater than 160 Disposition Summary: 03/04/24 19:22 Transfer Ordered Notes: Transfer Location: Other Acute Care Facility holly Reason: Higher level of care holly Condition: Fair holly Problem: new holly Symptoms: have improved holly [facility]04/24 20:58) ha1 Diagnosis - Chest pain, unspecified holly - Abnormal electrocardiogram [ECG] [EKG] holly - Essential (primary) hypertension holly - Non ST elevation [place] holly - Unspecified kidney failure - chronic holly Forms: - Medication Reconciliation Form holly - SBAR form holly Signatures: Dispatcher [employer] EDAbilio Bhat MD MD cha Slawson, Ashby RN RN as6 Zayra Meadows RN RN jw7 Norma Paz RN RN ha1 Galilea Haq RN lg3 Corrections: (The following items were deleted from the chart) 19:34 19:22 to [facility] holly holly 19:35 19:34 to [facility] holly holly 19:36 19:35 to [facility] holly holly 20:02 18:55 Angio Aorta For Dissection+CT.RAD.BRZ ordered. EDMS EDMS 20:58 19:36 to lisa [facility], cardiology [place] [id number]
--- NOTE | 2024-03-04 19:23 | ER ---
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 pt stated as6 that it radiated down his left arm. pt walked in the ambulance bay with unsteady gait clutching his chest. pt reports by the time pt got into bed pain has improved pt states he is worried about his blood pressure being too high. Coronavirus screen: At this time, the client does not indicate any symptoms associated with coronavirus-19. Ebola Screen: No symptoms or risks identified at this time. Initial Sepsis Screen: Does the patient meet any 2 criteria? No. Patient's initial sepsis screen is negative. Does the patient have a suspected source of infection? No. Patient's initial sepsis screen is negative. Risk Assessment: Do you want to hurt yourself or someone else? Patient reports no desire to harm self or others. Onset of symptoms was March 04, 2024. 18:49 Method Of Arrival: Ambulatory as6 18:49 Acuity: DILIA 2 as6 Triage Assessment: 18:53 General: Appears uncomfortable, ill, Behavior is drowsy. Pain: Complains of pain in as6 chest. Historical: - Allergies: 18:53 No Known Allergies; as6 - PMHx: 18:53 depressive disorder; Hypercholesterolemia; Hypertensive disorder; as6 - PSHx: 18:53 open heart; as6 - Immunization history:: Adult Immunizations not up to date. - Infectious Disease History:: Denies. - Social history:: Smoking status: Patient/guardian denies using tobacco, but has a distant history of tobacco abuse. Screenin:56 [facility] ED Fall Risk Assessment (Adult) History of falling in the last 3 months, kc6 including since admission No falls in past 3 months (0 pts) Confusion or Disorientation No (0 pts) Intoxicated or Sedated No (0 pts) Impaired Gait No (0 pts) Mobility Assist Device Used No (0 pt) Altered Elimination No (0 pt) Score/Fall Risk Level 0 - 2 = Low Risk. Abuse screen: Denies threats or abuse. Denies injuries from another. Nutritional screening: No deficits noted. Tuberculosis screening: No symptoms or risk factors identified. Assessment: 19:05 General: Appears in no apparent distress. comfortable, ill, Behavior is calm, jw7 cooperative, appropriate for age. Pain: Denies pain. 19:05 Neuro: Level of Consciousness is awake, alert, obeys commands, Oriented to person, jw7 place, time, situation, Appropriate for age. Cardiovascular: Heart tones S1 S2 present Capillary refill < 3 seconds Clubbing of nail beds is absent JVD is absent Patient's skin is warm and dry. Rhythm is sinus rhythm Chest pain is denied. Respiratory: Airway is patent Trachea midline Respiratory effort is even, unlabored, Respiratory pattern is regular, symmetrical, Breath sounds are clear bilaterally. GI: Abdomen is flat, non-distended, Bowel sounds present X 4 quads. Abd is soft and non tender X 4 quads. : No deficits noted. No signs and/or symptoms were reported regarding the genitourinary system. EENT: No deficits noted. No signs and/or symptoms were reported regarding the EENT system. Derm: Skin is intact, is healthy with good turgor, Skin is dry, Skin is normal, Skin temperature is warm. Musculoskeletal: Circulation, motion, and sensation intact. Range of motion: intact in all extremities. 20:00 Reassessment: Patient appears in no apparent distress at this time. No changes from [facility] previously documented assessment. Patient and/or family updated on plan of care and expected duration. Pain level reassessed. Patient is alert, oriented x 3, equal unlabored respirations, skin warm/dry/pink. 20:15 Reassessment: attempted to give report nurse unable. ha1 20:45 Reassessment: Patient and/or family updated on plan of care and expected duration. Pain ha1 level reassessed. Patient is alert, oriented x 3, equal unlabored respirations, skin warm/dry/pink. Patient denies pain at this time. 21:03 Reassessment: report given to W[facility] [place]. ha1 Vital Signs: 18:49 BP 213 / 96; Pulse 81; Resp 16; Temp 97.9; Pulse Ox 100% ; Weight 92.99 kg; Height 6 as6 ft. 0 in. ; Pain 0/10; 18:56 BP 155 / 74; Pulse 86; Resp 18 S; Pulse Ox 96% on R/A; kc6 19:00 BP 150 / 78; Pulse 80; Resp 15 S; Pulse Ox 98% on R/A; jw7 19:30 BP 130 / 74 LA; lg3 19:30 BP 128 / 80 RA; lg3 20:11 BP 160 / 83; Pulse 67; Resp 17 S; Pulse Ox 100% on R/A; jw7 20:15 BP 174 / 92; Pulse 84; Resp 14 S; Pulse Ox 99% on R/A; jw7 20:17 BP 167 / 76; Pulse 83; Resp 13 S; Pulse Ox 100% on R/A; jw7 20:45 BP 141 / 68; Pulse 75; Resp 17 S; Pulse Ox 100% on R/A; ha1 18:49 Body Mass Index 27.80 (92.99 kg, 182.88 cm) as6 18:49 Pain Scale: Adult as6 ED Course: 18:49 Patient arrived in ED. as6 18:51 Abilio Moncada MD is Attending Physician. [facility] 18:53 Triage completed. as6 18:54 Arm band placed on. as6 18:54 Inserted saline lock: 18 gauge in right antecubital area, using aseptic technique. as6 Blood collected. 18:56 Patient has correct armband on for positive identification. Placed in gown. Bed in low kc6 position. Call light in reach. Side rails up X2. Client placed on continuous cardiac and pulse oximetry monitoring. NIBP monitoring applied. radiation monitor on. 19:05 O2 via RA. jw7 19:40 Dr. Moncada initiated transfer to [facility], spoke with Chela Tariq and immediately did wm Doc to Doc and got acceptance. [facility] Gayla Tee Rm: [id number] [place], A per Chela Tariq. 20:00 No provider procedures requiring assistance completed. Inserted saline lock: 22 gauge ha1 in left forearm, using aseptic technique. 20:07 XRAY Chest (1 view) In Process Unspecified. 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 wm 20:58 Provided Education on: need for transfer . ha1 20:58 Patient transferred, IV remains in place. ha1 Administered Medications: 19:50 Not Given (Duplicate Order): [id number] mg IV at per protocol once over 2 mins holly 19:50 Not Given (Duplicate Order): [id number] mg IV at per protocol once over 2 mins; repeat holly if systolic is greater than 160 sys, hr greater than 20:00 Drug: NS 0.9% IV 500 ml IV at bolus once Route: IV; Rate: bolus; Site: left wrist; jw7 20:45 Follow up: Response: No adverse reaction; IV Status: Completed infusion; IV Intake: jw7 500ml 20:00 Drug: NS 0.9% IV 1000 ml IV at 125 ml/hr continuous Route: IV; Rate: 125 ml/hr; Site: [facility] left wrist; 20:45 Follow up: Response: No adverse reaction; IV Status: Infusion continued upon transfer; jw7 IV Intake: 200ml 20:00 Drug: Famotidine IVP 20 mg IVP once; dilute with 10 mL 0.9% NaCl; give over 2 minutes jw7 Route: IVP; Site: right antecubital; 20:45 Follow up: Response: No adverse reaction jw7 20:00 Drug: Labetalol PO 100 mg PO once Route: PO; jw7 20:45 Follow up: Response: No adverse reaction; Marked relief of symptoms; Blood pressure is jw7 lowered 20:00 Drug: Clopidogrel PO 75 mg PO once Route: PO; jw7 20:50 Follow up: Response: No adverse reaction ha1 20:00 Drug: Aspirin PO Chewable Tablet 81 mg PO once Route: PO; jw7 20:50 Follow up: Response: No adverse reaction ha1 20:15 Drug: Heparin (FL-Bolus No thrombolytic) - HEParin IVP 60 units/kg IVP once; Max 5000 jw7 units {Co-Signature: meño (Galilea Haq RN).} Route: IVP; Site: right antecubital; 20:50 Follow up: Response: No adverse reaction; Marked relief of symptoms ha1 20:21 Drug: Heparin (FL Drip) 12 units/kg/[place] - ([place] [address] units, D5W IV 500 ml) IV at jw7 calculated rate Per protocol; Max initial rate 1000 units/hr {Co-Signature: meño (Able, Galilea RN).} Route: IV; Rate: calculated rate; Site: right antecubital; 20:55 Follow up: Response: No adverse reaction; IV Status: Infusion continued ha1 20:34 Drug: Labetalol IV 10 mg IV at per protocol once Route: IV; Rate: per protocol; Site: jw7 left wrist; 20:45 Follow up: Response: No adverse reaction; IV Status: Completed infusion; IV Intake: 2ml jw7 20:55 Follow up: Response: No adverse reaction ha1 20:52 Not Given (Patient Refused): morphineor iv 2 mg IVP once over 4 mins jw7 20:52 Not Given (Patient Refused): morphineor iv 2 mg IVP once over 4 mins jw7 20:52 Not Given (Patient Refused): ondansetron 4 mg IVP once; over 2 minutes jw7 20:52 Not Given (PT Transferedd): [id number] mg IV at per protocol once; repeat if sys jw7 greater than 160 Medication: 20:46 VIS not applicable for this client. ha1 Intake: 20:45 IV: 500ml; Total: 500ml. jw7 20:45 IV: 200ml; Total: 700ml. jw7 20:45 IV: 2ml; Total: 702ml. jw7 Outcome: 19:22 ER care complete, transfer ordered by MD. barrera 20:57 Transferred by ground EMS to [facility], Transfer form ha1 completed. X-rays sent w/ patient. 20:57 Condition: stable 20:57 Discharge instructions given to patient, family, Instructed on the need for transfer, Demonstrated understanding of instructions, 20:58 Patient left the ED. ha1 Signatures: Dispatcher [employer] EDAbilio Bhat MD MD cha Able, Lacie, RN RN lg3 Mai Guzman Ashby, RN RN as6 Zayra Meadows RN RN jw7 Norma Paz RN RN cathy1 Maria Guadalupe Gunter RN RN kc6 Galilea Haq RN, lg3
[2024-03-04 19:28] LABS: Albumin 3.7 g/dL (3.4-5.0); Albumin/Globulin Ratio 0.8 (1.1-1.8); Anion Gap 7.7 mEq/L (5.0-15.0); Bilirubin Direct 0.1 mg/dL (0-0.2); Bilirubin Indirect, Calculated 0.3 mg/dL (0.2-0.8); Bilirubin Total 0.4 mg/dL (0.2-1.0); Globulin 4.7 g/dL (2.3-3.5); Magnesium 2.1 mg/dL (1.6-2.4); Potassium 3.7 mEq/L (3.5-5.1); Protein, Total 8.4 g/dL (6.4-8.2)
[2024-03-04] MEDS ORDERED: LABETALOL HCL 100 MG TAB ONE (19:28)
[2024-03-04] MEDS ORDERED: NA CHLORIDE 0.9% 500 ML ONE (19:29)
[2024-03-04] MEDS ORDERED: FAMOTIDINE 20 MG/2 ML VIAL IV ONE (19:29)
[2024-03-04] MEDS ORDERED: NA CHLORIDE 0.9% 1,000 ML ONE (19:29)
[2024-03-04] MEDS ORDERED: MORPHINE 2 MG/ML SYR ONE (19:29)
[2024-03-04] MEDS ORDERED: ASPIRIN 81 MG CHEWABLE TABLET ONE (19:29)
[2024-03-04 19:30] LABS: Troponin High Sensitivity 109.5 pg/mL (<58.9)
[2024-03-04] MEDS ORDERED: HEPARIN 5000 UNIT/ML 1 ML VIAL ONE (19:54)
[2024-03-04] MEDS ORDERED: ONDANSETRON 4 MG/2 ML VIAL ONE (19:54)
[2024-03-04] MEDS ORDERED: CLOPIDOGREL 75 MG TABLET ONE (19:54)
[2024-03-04] MEDS ORDERED: HEPARIN/D5W 25,000 UNIT/500 ML BAG IV ONE (19:55)
[2024-03-04] MEDS ORDERED: LABETALOL 20 MG/4ML SYRINGE IV ONE (20:28)
[2024-03-04 21:18] VITALS: BP 141/68; TEMP 97.9; O2SAT 100
--- NOTE | 2024-03-04 21:18 | RAD REPORT ---
[facility] 8:05 pm CLINICAL HISTORY: CHEST PAIN COMPARISON: Chest Single View dated 05/20/2021; CHEST SINGLE VIEW dated 07/06/2013; CHEST SINGLE VIEW dated 09/24/2012; CHEST PA AND LAT 2 VIEW dated 09/24/2005 TECHNIQUE: Portable AP view of the chest. FINDINGS: The lungs are clear. No pneumothorax or effusion. The cardiomediastinal contours are unre markable. IMPRESSION: No acute cardiopulmonary process.
--- NOTE | 2024-03-05 14:44 | EKG ---
Test Date: 2024-03-04 Test Time: 18:36:42 [employer]: JAYNE MEASUREMENT RESULTS: Intervals: Rate: 84 [place]: 170 QRSD: 84 QT: 376 QTc: 444 [place]: P: 59 [place]: 170 QRS: -4 T: 167 INTERPRETIVE STATEMENTS: Normal sinus rhythm Marked ST abnormality, possible lateral subendocardial injury Abnormal ECG Compared to ECG 05/20/2021 16:52:20 Prolonged QT interval no longer present ST (T wave) deviation still present Electronically Signed On 03-05-24 14:43:26 CDT by Pramod Guzman
== END 2024-03-04 20:58 ==
LOC: ER 18:48
DX: I21.4 Non-ST elevation (NSTEMI) myocardial infarction (principal); R94.31 Abnormal electrocardiogram [ECG] [EKG]; I12.9 Hypertensive chronic kidney disease with stage 1 through stage 4 chronic kidney disease, or unspecified chronic kidney disease; N18.9 Chronic kidney disease, unspecified
CPT/HCPCS: 93005; 85025; 80048; 36415; 83735; 85610; 80076; 84484; 83690; 83880; 71045; J1644; J7040; J7030; 99285; J2270; J2405